=== PATIENT | female | born 1980 | race Caucasian/White ===

== ENCOUNTER 2016-12-20 17:41 | Emergency (ER) | payer MEDICAID ==
[~2016-12-20] VITALS: Ht 157.5 cm; Wt 52.2 kg
[2016-12-20 21:15] VITALS: BP 99/60
== END 2016-12-20 21:16 | disposition home or self-care (01) ==
LOC: ED 17:41
DX: R06.4 Hyperventilation (principal); Z79.899 Other long term (current) drug therapy